=== PATIENT | male | born 1955 | race Caucasian/White ===

== ENCOUNTER → 2019-10-06 | Outpatient (CLI) | payer MEDICARE ==
[~2019-10-06] MED LIST: ASPI-482 PO; CARV6.2511 PO; FERR325T14 PO; LISI10TA2 PO; LISI1TAB20 PO; PRAV10TA2 PO
[2019-10-06 09:24] LABS: BASO % 1 % (0-3); EOS # 0.1 x10^3/uL (0.0-0.7); EOS % 2 % (0-3); HEMATOCRIT 43.4 % (39.0-53.0); HEMOGLOBIN 15.2 g/dL (13.0-17.5); LYMPH % 32 % (24-48); MEAN CORPUSCULAR HEMOGLOBIN 31 pg (25-35); MEAN CORPUSCULAR HGB CONC 35 g/dL (31-37); MEAN CORPUSCULAR VOLUME 87 fL (79-100); MONO # 0.5 x10^3/uL (0.0-1.1); MONO % 8 % (0-9); NEUT # 3.5 x10^3/uL (1.8-7.7); NEUT % 57 % (31-73); PLATELET COUNT 233 x10^3/uL (140-400); RED BLOOD COUNT 4.97 x10^6/uL (4.30-5.70); RED CELL DISTRIBUTION WIDTH 13.8 % (11.5-14.5); WHITE BLOOD COUNT 6.2 x10^3/uL (4.0-11.0)
[2019-10-06 09:30] LABS: PROTHROMBIN TIME PATIENT 13.6 SEC (11.7-14.0)
[2019-10-06 09:41] LABS: ALBUMIN 4.4 g/dL (3.4-5.0); CALCIUM 9.2 mg/dL (8.5-10.1); CREATININE 0.9 mg/dL (0.7-1.3); GFR 84.7; POTASSIUM 4.1 mmol/L (3.5-5.1)
--- NOTE | 2019-10-06 13:39 | EKG ---
[facility] [address] [place] [address] Test Date: 2019-10-06 Test Time: 13:22:22 Pat Name: JOANNA RAPP Department: Room: Gender: M [employer]: : [id number] Requested By: KRYSTINA NANCE Order Number: [id number] Reading MD: Wood Dong Measurements Intervals [place] Rate: 71 P: 51 HI: 164 QRS: 48 QRSD: 82 T: 63 QT: 422 QTc: 459 Interpretive Statements SINUS RHYTHM ST & T ABNORMALITY, CONSIDER HIGH LATERAL ISCHEMIA OR LEFT VENTRICULAR STRAIN ABNORMAL ECG RI6.02 No previous ECG available for comparison Electronically Signed On 10-09-2019 11:29:28 [employer] by Wood Dong
--- NOTE | 2019-10-06 13:42 | RAD ---
EXAM: Chest, 2 views. HISTORY: Preoperative evaluation. COMPARISON: None. FINDINGS: 2 views of the chest are obtained. There is no infiltrate, pleural effusion or pneumothorax. The heart is normal in size. There is evidence of prior CABG. IMPRESSION: No acute pulmonary finding. Electronically signed by: Rola Lo MD (10/06/2019 1:39 PM) [facility]
[2019-10-07 00:07] LABS: HEMOGLOBIN A1C 6.2 % (4.8-5.6)
== END | disposition home or self-care (01) ==
LOC: SURGPAT 13:17
PROVIDERS: ATTEND Orthopaedic Surgery
DX: Z01.818 Encounter for other preprocedural examination (principal); M17.12 Unilateral primary osteoarthritis, left knee; Z95.2 Presence of prosthetic heart valve; Z88.5 Allergy status to narcotic agent; Z88.8 Allergy status to other drugs, medicaments and biological substances
CPT/HCPCS: 36415; 71046; 80048; 82040; 82306; 83036; 85025; 85610; 85651; 85730; 87641; 93005